=== PATIENT | female | born 1985 | race Caucasian/White ===

== ENCOUNTER 2019-10-27 05:49 | Day surgery (SDC) | payer OTHER ==
[2019-10-16 17:25] VITALS: BMI 25.4
[2019-10-21 16:38] LABS: Hemoglobin 12.8 g/dL (12.0-16.0); Mean Corpuscular HGB CONC 33.6 g/dL (32.0-36.0); Mean Corpuscular Hemoglobin 30.6 pg (27.0-31.0); Mean Corpuscular Volume 90.9 fL (78.0-98.0); Mean Platelet Volume 7.5 fL (7.4-10.4); Platelet Count 314 thou/uL (130-400); RBC Distribution Width 11.4 % (11.5-14.5); Red Blood Cell (RBC) Count 4.18 mill/uL (4.20-5.40); White Blood Cell (WBC) Count 21.1 thou/uL (4.8-10.8)
[2019-10-21 17:01] LABS: BHCG - Serum Negative (NEGATIVE); Pregs Control Bar Appear? YES (CONTROL BAR)
[2019-10-21 17:02] LABS: Pregs Control Background? CLEAR/WHITE (CLR/WHITE)
[2019-10-27] MEDS ORDERED: HYDROmorphone 0.5 MG/0.5 ML SYRINGE ONE (06:37)
[2019-10-27] MEDS ORDERED: Fentanyl 100 MCG/2 ML VIAL ONE ×3 (06:37→11:11)
[2019-10-27] MEDS ORDERED: CeleCOXIB 100 MG CAP ONE (06:39)
[2019-10-27] MEDS ORDERED: Famotidine/PF 20 mg/2ml Vial ONE (06:39)
[2019-10-27] MEDS ORDERED: Gabapentin 300 MG CAP ONE (06:39)
[2019-10-27] MEDS ORDERED: Bupivacaine PF 0.5% 30 ML VIAL ONE (06:49)
[2019-10-27] MEDS ORDERED: Lidocaine 1% w/Epinephrine 1:100K 20 ML VIAL ONE (06:49)
[2019-10-27] MEDS ORDERED: Meperidine HCl/PF 25 MG/ML VIAL SLOW IVP PRN (09:12)
[2019-10-27] MEDS ORDERED: HYDROmorphone 2 MG/ML VIAL SLOW IVP PRN (09:12)
[2019-10-27] MEDS ORDERED: Promethazine HCl 25 MG/ML VIAL SLOW IVP PRN (09:12)
[2019-10-27] MEDS ORDERED: Promethazine HCl 25 MG/ML VIAL IM PRN (09:20)
[2019-10-27] MEDS ORDERED: Zolpidem Tartrate 5 MG TAB PO PRN (09:20)
[2019-10-27] MEDS ORDERED: Bisacodyl 10 MG SUPP PR PRN (09:20)
[2019-10-27] MEDS ORDERED: diphenhydrAMINE 25 MG CAP PO PRN (09:20)
[2019-10-27] MEDS ORDERED: Simethicone Chewable 80 MG TAB PO PRN (09:20)
[2019-10-27] MEDS ORDERED: Ondansetron PF 4 MG/2 ML Vial IVP PRN (09:20)
[2019-10-27] MEDS ORDERED: Fentanyl 100 MCG/2 ML VIAL SLOW IVP PRN (09:20)
[2019-10-27] MEDS ORDERED: HYDROcodone/Acetaminophen 5/325 mg Tablet PO PRN ×2 (09:20)
[2019-10-27] MEDS ORDERED: Sodium Chloride 0.9% 1,000 ML IV SCH (09:30)
[2019-10-27] MEDS ORDERED: Ondansetron PF 4 MG/2 ML Vial ONE (10:01)
[2019-10-27] MEDS ORDERED: Dexamethasone 20 MG/5 ML VIAL ONE (10:01)
[2019-10-27] MEDS ORDERED: PROPOFOL 200 MG/20 ML VIAL ONE (10:01)
[2019-10-27] MEDS ORDERED: PHENYLEPHRINE-NS 100 MCG/ML 10 ML SYRINGE ONE (10:01)
[2019-10-27] MEDS ORDERED: Glycopyrrolate 0.2 MG/ML 5 ML SYRINGE ONE (10:01)
[2019-10-27] MEDS ORDERED: Rocuronium Bromide 10 MG/ML (10ML VIAL) ONE (10:01)
[2019-10-27] MEDS ORDERED: Lidocaine 1% PF 5 ML VIAL ONE (10:01)
--- NOTE | 2019-10-27 10:09 | OP ---
DATE OF PROCEDURE: 10/27/2019 PREOPERATIVE DIAGNOSES: 1. Pelvic pain. 2. Menorrhagia. 3. Endometriosis. POSTOPERATIVE DIAGNOSES: 1. Pelvic pain. 2. Menorrhagia. 3. Endometriosis. 4. Left ovarian cyst. PROCEDURES PERFORMED: Robotic-assisted total laparoscopic hysterectomy, left salpingo-oophorectomy, and right salpingectomy. ANESTHESIA: General endotracheal. CONTINUITY READER SURGEON: Yanna Luque PA-C ESTIMATED BLOOD LOSS: 50 mL. IVF: 1700 mL of crystalloid. URINE OUTPUT: 350 mL of clear urine. COMPLICATIONS: None. DRAINS: Glynn catheter. PATHOLOGY: Uterus, cervix, bilateral fallopian tubes, and left ovary. FINDINGS: An 8-week size, mobile, normal-appearing uterus and normal-appearing cervix and vaginal mucosa. The right ovary was normal. Bilateral fallopian tubes were normal. Left ovary had multiple loculated cysts present. The ureters were visualized during the case, dissected out of the retroperitoneum. The left ureter was noted to be running high and was visible approximately 2 cm away from the internal cervical os and that crossed over the anterior cervix on the left side. This was dissected away from the area of incision and suturing and was visible vermiculating throughout the crucial parts of the case including the cautery, incision of the uterine pedicle, the colpotomy, and the vaginal cuff repair. The bladder was backfilled multiple times and no inadvertent injury to the bladder was noted. Excellent hemostasis was noted on low pressure check. DESCRIPTION OF PROCEDURE: The patient was taken to the operating room where general anesthesia was obtained without difficulty. The patient was prepped and draped in a sterile fashion in a dorsal lithotomy position. A Glynn catheter was placed in the bladder. A speculum was placed in the vagina. The anterior lip of the cervix was grasped with a single-tooth tenaculum. The cervix was then dilated with Brijesh dilators and the uterus sounded to 8 cm. The EDITH manipulator was assembled with an 8 cm tip and a 4 cm colpotomizer ring. The EDITH was inserted into the uterus. Colpotomizer ring was advanced to fit snugly around the cervix and the instruments removed out of the vagina. Balloons were inflated. Legs were placed in low lithotomy. Attention was turned to the abdomen. Mixture of 0.5% Marcaine and 1% lidocaine with epinephrine was infiltrated into the umbilicus and a 12-mm skin incision was made. The Veress needle was passed into the abdomen several times until an opening pressure of 4 mmHg was obtained and pneumoperitoneum was obtained without difficulty. The Veress needle was removed and a 12-mm trocar and sleeve were advanced into the abdomen and confirmed placement with robotic camera. Steep Trendelenburg was obtained. Right and left lower quadrant robotic 8-mm trocars were placed under direct visualization after infiltrating with anesthetic. The right upper quadrant 11-mm port was also placed for the assistant distribution manager under direct visualization after infiltrating with anesthetic. The robot was then docked. The right robotic arm contained monopolar scissors. Left robotic arm contained a fenestrated bipolar. The surgeon console then took control. Evaluation of the pelvis noted no severe endometriosis or lesions as had previously been suspected. There was some scarring and clefting on the left pelvic sidewall and possibly one small vesicular lesion on the left pelvic sidewall. The ovaries were noted as above with the left having multiple cysts present, possible endometriomas. At that time, the right fallopian tube was grasped and elevated. The mesosalpinx was cauterized with the fenestrated and incised with the scissors and the fallopian tube was removed out of the abdomen. The utero-ovarian was cauterized with the fenestrated and incised with the scissors as well as the round ligament in the midportion. This opened up the anterior and posterior leaf of the broad ligament. The posterior leaf was incised. The uterines were noted to be slightly more lateral and there was a slight incision into the uterine that caused some oozing. This was hemostatic with the fenestrated. The ureter was then identified and was dissected out in the retroperitoneum. Once that had occurred, the peritoneum was dissected out lateral to the area of the incision on the uterine vessel to allow to drop that peritoneum down and allow the ureter to fall away. This was done with incision as well as a blunt pushing and spreading. The anterior leaf of the broad ligament was then undermined with the fenestrated and incised with the scissors. The pedicle was skeletonized with the scissors. At that time, the bladder flap was layered out, undermining with the fenestrated and the scissors and incising once a clear window was noted. The patient had two prior C-sections, therefore, the bladder was backfilled to ensure noting the limitations of the bladder. This was then decompressed. At that time, the left-sided fallopian tube was grasped and elevated. The ureter was noted to be running at the pelvic brim and the IP was then clamped, hugging the ovary, and cauterized with the fenestrated. The ureter was well away. The meso-ovarian was cauterized and incised until the round ligament in the midportion was cauterized and incised. The anterior leaf of the broad ligament was incised down to the level of the contralateral side incision. The posterior leaf of the broad ligament was also incised down to the level of the uterosacral. The ureter was then dissected out in the retroperitoneum and noted laterally and the vessels were further skeletonized as well as creating a bladder flap. The bladder had previously been backfilled, and therefore, I felt comfortable scoring on the pubocervical fascia and doing blunt dissection with the back end of the scissors down below the level of the colpotomizer ring. During the dissection of the uterine pedicle, the ureter was noted coursing high up across the cervix and anterior vagina. At that time, blunt dissection with the fenestrated was used to push that tissue back away from the pedicle and the vaginal cuff. The uterine pedicle was cauterized, hugging the medial side inside the ring at the internal cervical os. The incision was also made inside the ring and then the pedicle was dissected out with the scissors, incising at the medial portion of the pedicle to allow the pedicle to fall away, and therefore, the ureter also to fall away and hemostasis was noted. Anterior colpotomy was performed around the left side. The right vessel vasculature was incised at the uterine and also that pedicle was dissected away from the lateral vaginal apex. The posterior colpotomy was then completed and the uterus was removed into the vagina. The cuff was copiously irrigated and suctioned. The scissors were traded out for the needle mail truck driver and the hemostasis was achieved of the cuff with the fenestrated. The 2-0 STRATAFIX barbed suture was used to close the cuff in a running fashion and incorporating vaginal mucosa and posterior peritoneum in each bite and then ran back for a second layer. The needle was cut and removed out of the abdomen. The ureter was again noted on the left side and evaluated thoroughly, was still vermiculating and appeared completely intact without any imposition from the suture and no cautery had been performed anywhere near the ureter. Low pressure check was performed and hemostasis was noted to be excellent. Irrigation was again performed of the pelvis, noting hemostasis. The bladder was backfilled one additional time and no extravasation of saline occurred. At that time, all instruments were removed out of the abdomen. The robot was undocked and pneumoperitoneum was released. The fascia of the umbilical port was closed with a 0 Vicryl in a [id number] fashion. The skin was closed with a 4-0 Monocryl in a subcuticular fashion. Dermabond was applied. The vaginal cuff was checked and noted to be hemostatic with excellent closure and no active bleeding. All instruments were removed from the vagina. The patient tolerated the procedure well. Sponge, lap, and needle counts correct x2. The patient was taken to recovery room in stable condition. The patient received Ancef 2 g prior to the procedure. Job ID: [id number]
[2019-10-27] MEDS ORDERED: Promethazine HCl 25 MG/ML VIAL ONE (10:33)
[2019-10-27] MEDS: Sodium Chloride 0.9% 1,000 ML IV SCH ×2 (12:04→22:50)
[2019-10-27] MEDS: Ketorolac Tromethamine 30 MG/ML VIAL IVP SCH ×2 (12:13→18:14)
[2019-10-28] MEDS: Ketorolac Tromethamine 30 MG/ML VIAL IVP SCH (00:04)
[2019-10-28 01:06] VITALS: TEMP 98.4
[2019-10-28] MEDS ORDERED: Ibuprofen 800 MG TAB PO SCH (06:00)
[2019-10-28 06:17] LABS: Hemoglobin 11.4 g/dL (12.0-16.0); Mean Corpuscular HGB CONC 32.7 g/dL (32.0-36.0); Mean Corpuscular Volume 91.7 fL (78.0-98.0); Mean Platelet Volume 7.4 fL (7.4-10.4); Platelet Count 262 thou/uL (130-400); RBC Distribution Width 11.5 % (11.5-14.5); White Blood Cell (WBC) Count 15.9 thou/uL (4.8-10.8)
[2019-10-28 08:21] VITALS: BP 98/54
--- NOTE | 2019-10-28 09:34 | PDOC.EVN ---
Event Note - Event Note Event Note: POD1 S: Doing well, pain controlled, ambulating, voiding, michael reg diet. O: VSSAF NAD unlabored breathing s/appttp/nd/inc c/d/i No e/c/c Hgb 11.4 A) POD1 s/p RATLH LSO, right salpingectomy P) Met all postop milestones DC home on norco and ibuprofen Postop care discussed and precautions Path pending FU 2 wk
== END 2019-10-28 10:25 | disposition home or self-care (01) ==
LOC: SDC 05:49 → 3SE 11:34 → SDC 10-28 10:25
PROVIDERS: ATTEND Student in an Organized Health Care Education/Training Program
PROC: 0UT94ZZ Resection of Uterus, Percutaneous Endoscopic Approach (ICD-10-PCS; principal; 2019-10-28)
PROC: 0UT74ZZ Resection of Bilateral Fallopian Tubes, Percutaneous Endoscopic Approach (ICD-10-PCS; principal; 2019-10-28)
PROC: 0UT14ZZ Resection of Left Ovary, Percutaneous Endoscopic Approach (ICD-10-PCS; principal; 2019-10-28)
DX: N83.12 Corpus luteum cyst of left ovary (principal); N80.9 Endometriosis, unspecified; D64.9 Anemia, unspecified; F90.9 Attention-deficit hyperactivity disorder, unspecified type; K58.9 Irritable bowel syndrome, unspecified; Z79.899 Other long term (current) drug therapy; Z87.891 Personal history of nicotine dependence
CPT/HCPCS: 36415; 84703; 85027; 86850; 86900; 86901; 88307; J0690; J1100; J1170; J1885; J2001; J2405; J2550; J2704; J3010; S0020; S0028